=== PATIENT | female | born 1995 | race Caucasian/White ===

== ENCOUNTER 2017-10-26 06:11 | Day surgery (SDC) | payer OTHER ==
[2017-10-26] MEDS ORDERED: MIDAZOLAM 1 MG/ML 2 ML INJ (07:30)
[2017-10-26] MEDS ORDERED: LIDOCAINE 2% (SDV) 5 ML INJ (07:30)
[2017-10-26] MEDS ORDERED: PROPOFOL 20 ML (07:30)
== END 2017-10-26 12:21 | disposition home or self-care (01) ==
LOC: GIL 06:11
DX: K29.50 Unspecified chronic gastritis without bleeding (principal)
CPT/HCPCS: 43239; 84703; 88305; 88312